=== PATIENT | male | born 1965 | race Caucasian/White ===

== ENCOUNTER → 2018-04-24 | Outpatient (CLI) | payer OTHER ==
--- NOTE | 2018-04-24 15:45 | RAD ---
Examination: Bilateral Lower Extremity Venous Doppler Ultrasound History: Right calf pain, swelling Comparison: None Procedure: Finengan scale, color flow 2D and spectal waveform analysis images are obtained with and without compression in the area of the common femoral vein, superficial femoral vein - femoral vein junction, main femoral vein (superficial femoral vein) and popliteal vein. Veins of the proximal calf are also imaged. Findings: There is normal duplex flow, color flow and compressibility of all visualized vein segments. No evidence of deep venous thrombus is present. Impression: No evidence of DVT in the visualized bilateral lower extremity venous system. Electronically signed by: Shad Reis MD (04/24/2018 3:41 PM) [id number]
== END | disposition home or self-care (01) ==
LOC: US 14:34
PROVIDERS: ATTEND Family Medicine
DX: M79.661 Pain in right lower leg (principal); M79.89 Other specified soft tissue disorders
CPT/HCPCS: 93970

== ENCOUNTER → 2021-01-08 | Outpatient (CLI) | payer OTHER ==
--- NOTE | 2021-01-08 15:22 | RAD ---
DATE: 01/08/2021 1:03 PM EXAM: DIGITAL DIAGNOSTIC BILATERAL HISTORY: 55-year-old man with right breast lump for 3 months COMPARISON: None. This is a baseline. Bilateral full field craniocaudal and mediolateral oblique images were obtained using digital technique. This study was interpreted with the benefit of Computerized Aided Detection (CAD). FINDINGS: Breast Density: HETERO The breast parenchyma Is heterogeneously dense, which could reduce sensitivity of mammography. Breast parenchyma level C Negative left mammogram. Right mammogram shows a flame-shaped subareolar density consistent with benign gynecomastia. No suspicious microcalcification, architectural distortion or suspicious mass. IMPRESSION: No mammographic evidence of malignancy. BI-RADS CATEGORY: 2 BENIGN FINDING(S) RECOMMENDED FOLLOW-UP: CLIN FOLLOW UP IMAGING CLINICALLY INDICATED Recommend clinical management and follow-up as appropriate, including biopsy if there are any clinically suspicious findings on clinical exam. Mammography is a sensitive method for finding small breast cancers, but it does not detect them all and is not a substitute for careful clinical examination. A negative mammogram does not negate a clinically suspicious finding and should not result in delay in biopsying a clinically suspicious abnormality. "Our facility is accredited by the [employer] Mammography [employer]."
== END ==
LOC: MAMMO 12:54
PROVIDERS: ATTEND Family Medicine
DX: R92.2 Inconclusive mammogram (principal)
CPT/HCPCS: 77066

== ENCOUNTER → 2021-07-13 | Outpatient (CLI) | payer OTHER ==
--- NOTE | 2021-07-13 13:56 | RAD ---
EXAMINATION: MG DIAGNOSTIC BILAT, US BREAST LTD AMAYA History: Bilateral gynecomastia, new lump on left. Comparison: Bilateral mammogram 01/08/2021. Technique: Bilateral digital diagnostic mammogram views were obtained. CAD was utilized. Bilateral b reast ultrasound in the retroareolar region was also performed. Findings: Breast Tissue Density B : There are scattered areas of fibroglandular density. There is bilateral flame-shaped retroareolar tissue consistent with gynecomastia. No suspicious desiree s or calcifications. Architectural distortion.. Ultrasound of the retroareolar regions demonstrates flame shaped irregular tissue in the retroareolar region bilaterally. No suspicious mass. IMPRESSION: Bilateral gynecomastia. No evidence of malignancy. BI-RADS category 2: Benign findings. The images were reviewed with computer aided detection. Mammography is the most sensitive method for finding small breast cancers, but it does not detect the m all and is not a substitute for careful clinical examination. A negative mammogram does not negate a clinically suspicious finding and should not result in delay in biopsying a clinically suspicious a bnormality. "Our facility is accredited by the [employer] Mammography [employer]." Electronically signed by: Luzmaria Rosado MD (07/13/2021 1:53 PM) [id number]
== END ==
LOC: MAMMO 12:21
PROVIDERS: ATTEND Family Medicine
DX: N62 Hypertrophy of breast (principal)
CPT/HCPCS: 77066; 76642-50